=== PATIENT | female | born 2000 | race American Indian/Alaskan Native ===

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

== ENCOUNTER 2022-01-13 14:10 | Emergency (ER) | payer MEDICAID, SELFPAY ==
--- NOTE | ~2022-01-13 | US_ITS ---
EXAMINATION: US pelvic complete DATE: 01/13/2022 17:01 INDICATION: Right-sided pelvic pain TECHNIQUE: Multiple transabdominal sonographic images of the pelvis were obtained. COMPARISON: None. FINDINGS: The anteverted uterus measures 6.9 x 5.1 x 5.5 cm. The endometrial complex measures 11 mm in thickne ss. The right ovary measures 5.3 x 4.9 x 5.1 cm. There is a 4.0 cm hypoechoic lesion in the in the ri ght ovary which demonstrates near fluid attenuation on prior contrast enhanced CT most likely represe nting a complex hemorrhagic cyst. The left ovary measures 3.0 x 1.4 x 1.7 cm. Vascular flow identifie d in both ovaries on color Doppler. There is no free fluid in the pelvis. IMPRESSION: 1. 4.0 cm complex right ovarian lesion likely a hemorrhagic cyst. Recommend 6-12 months follow-up pel henri ultrasound to document resolution. Reviewed, dictated and finalized at location A. IMPRESSION: 1. 4.0 cm complex right ovarian lesion likely a hemorrhagic cyst. Recommend 6-1 2 months follow-up pelvic ultrasound to document resolution.
--- NOTE | ~2022-01-13 | CT_ITS ---
EXAMINATION: CT abdomen pelvis w con DATE: 01/13/2022 15:29 INDICATION: Right lower quadrant abdominal pain TECHNIQUE: Computed tomography (CT) of the abdomen and pelvis was performed with 100 mL Omnipaque-350 intravenous contrast. Automated exposure control and iterative reconstruction technique were employe d. The dose-length product was 218.70 mGy-cm. COMPARISON: None FINDINGS: Lung bases are clear. Heart size is normal. No pericardial or pleural effusion. Small region of focal hepatic steatosis at the ligamentum teres. Gallbladder, spleen, pancreas, bilateral adrenal glands a nd kidneys are normal. Bowels including the appendix are normal. 4.1 cm right adnexal cyst. Bladder, anteverted uterus and left adnexa are unremarkable. Small amount of likely physiologic free fluid in the pelvis. No abscess or free intraperitoneal gas. No pathologically enlarged abdominal or pelvic ly mphadenopathy. Bones are unremarkable. IMPRESSION: 1. 4.1 cm right adnexal cyst and small amount of likely physiologic free fluid in the cul-de-sac. 2. No other acute intra-abdominal/pelvic process. Specifically the appendix is normal. Reviewed, dictated and finalized at location A.
[2022-01-13 14:25] VITALS: BP 133/69; PULSE 92; RESP 17; TEMP 36.4; O2SAT 100
[2022-01-13 14:36] LABS: Basophils Absolute Auto 0.1 K/mm3 (0.0-0.1); Eosinophils Absolute Auto 0.2 K/mm3 (0-0.3); Eosinophils Percent Auto 2.7 % (0-4.4); Hematocrit 40.8 % (37.0-47.0); Hemoglobin 13.6 g/dL (12.0-15.0); Immature Granulocyte Absolute 0.01 K/mm3 (0.00-0.031); Immature Granulocyte Percent A 0.2 % (0-0.5); Lymphocytes Absolute Auto 2.21 K/mm3 (0.9-3.2); Lymphocytes Percent Auto 37.5 % (18.3-44.2); Mean Corpuscular HGB Conc 33.3 g/dl (32-36); Mean Corpuscular Hemoglobin 30.6 pg (26-34); Mean Corpuscular Volume 91.7 fl (80-100); Mean Platelet Volume 10.9 fl (7.4-10.4); Monocytes Absolute Auto 0.4 K/mm3 (0.1-0.6); Monocytes Percent Auto 5.9 % (2.6-8.5); Neutrophils Absolute Auto 3.1 K/mm3 (1.3-6.7); Neutrophils Percent Auto 52.7 % (45.5-73.1); Platelet Count Result 216 k/mm3 (150-375); Red Blood Count 4.45 M/mm3 (4.2-5.4); Red Cell Distribution Width 12.4 % (11.5-14.5); White Blood Count 5.9 K/mm3 (4.5-10.0)
[2022-01-13 14:37] LABS: Appearance Urine Cloudy (Clear); Bilirubin Urine Negative (Negative); Blood Urine Negative (Negative); Color Urine Yellow (Yellow); Glucose Urine UA Negative (Negative); Ketones Urine Negative (Negative); Leukocyte Esterase Ur 1+ LEU/UL (Negative); Nitrate Urine Negative (Negative); Protein Urine Negative (Negative); Urobilinogen Urine 0.2 mg/dL (<2.0)
[2022-01-13 14:43] LABS: Amorphous Sediment Urine Few; Bacteria Urine Trace /hpf; Mucus Urine Rare /lpf; Squamous Epithelial Cell Urine Moderate /hpf (Few)
[2022-01-13 14:45] LABS: Alanine Aminotransferase 17 U/L (6-35); Albumin Level 4.9 g/dL (3.7-5.6); Alkaline Phosphatase 73 U/L (45-116); Anion Gap 17 mmol/L (8-16); Aspartate Amino Transferase 23 U/L (14-36); Bilirubin,Total 0.2 mg/dL (0.2-1.3); Blood Urea Nitrogen 11 mg/dL (8-21); Calcium 8.8 mg/dL (8.9-10.7); Carbon Dioxide 20 mmol/L (22-30); Chloride 107 mmol/L (98-107); Estimated Glomerular Filt Rate > 60; Glucose 98 mg/dL (65-110); Lipase 214 U/L (23-300); Potassium 3.5 mmol/L (3.4-5.0); Sodium 144 mmol/L (134-143)
[2022-01-13 14:47] LABS: Add Urine Microscopic? YES
--- NOTE | 2022-01-13 14:48 | ED.ABDPAIN ---
HPI - Abdominal Pain General Chief Complaint: Abdominal Pain Stated Complaint: ABD PAIN Time Seen by Provider: 01/13/22 14:19 Source: patient Mode of arrival: ambulatory Limitations: no limitations History of Present Illness HPI narrative: This is a 21 year old female that presents to the ER for right lower quadrant pain. Present over the last couple of days. Reports the pain is crampy in nature. Associated with anorexia. Denies fever, vomiting, diarrhea, dysuria or hematuria. Related Data Home Medications Medication Instructions Recorded Confirmed oxybutynin chloride 5 mg tablet 5 mg PO DAILY 12/06/21 01/05/22 ubrogepant 50 mg tablet (Ubrelvy) 50 mg PO ONCE 01/05/22 01/05/22 Allergies Allergy/AdvReac Type Severity Reaction Status Date / Time amoxicillin Allergy Swelling Verified 01/13/22 14:26 of Lip/Tongue/Throat codeine Allergy Swelling Verified 01/13/22 14:26 of Lip/Tongue/Throat garlic Allergy Swelling Verified 01/13/22 14:26 Penicillins Allergy Swelling Verified 01/13/22 14:26 of Lip/Tongue/Throat promethazine Allergy Muscle Verified 01/13/22 14:26 Spasms Review of Systems Review of Systems: CONSTITUTIONAL: Denies fever GASTROINTESTINAL: Reports abdominal pain. Denies nausea, vomiting, or diarrhea. GENITOURINARY: Denies dysuria or hematuria. All systems reviewed & are unremarkable except as noted in HPI and below PMFSH Past Medical History Medical History Abnormal EEG Allergies Anxiety Bilateral pulmonary infiltrates on chest x-ray Chronic headaches Chronic tonsillitis Disorder of metabolism GERD (gastroesophageal reflux disease) H. pylori infection Irritable bowel disease Migraines Sleep disorder Suicide attempt Tonsil stone Tylenol overdose Surgical History Surgical History H/O sinus surgery H/O wisdom tooth extraction History of sinus surgery (~2020) Hx of tonsillectomy (~07/2021) Family History Family History Mother Thyroid disease Depression Anxiety Heart disease Asthma Thyroid cancer Father Alcoholism Anxiety Depression Heart disease Hypertension Sibling Alcoholism Asthma Anxiety Depression Grandparent Cancer paternal grandparent Hypertension paternal grandparent Heart disease maternal grandparent Cerebrovascular accident maternal grandparent Social History Social History Smoking status: Never smoker Alcohol intake: former Substance use: never Gender identity (if verbalized by the patient): Female Spiritual care concerns: No Exam Narrative: GENERAL: Well-appearing, well-nourished, and in no acute distress. HEAD: Normocephalic, atraumatic. EYES: EOMI. CHEST: Clear to auscultation. No respiratory distress. No wheezes rales or rhonchi HEART: Regular rate and rhythm. No murmur heard. Normal peripheral pulses. ABDOMEN: Soft, nondistended, normal active bowel sounds. Tender to palpation in the right lower quadrant, without guarding EXTREMITIES: Normal range of motion. No edema. SKIN: Warm, dry, no rash. NEURO: No focal deficits. Alert and oriented x3. PSYCH: Normal mood and affect Course Vital Signs Vital signs: Vital Signs Temperature 97.6 F 01/13/22 14:25 Pulse Rate 92 01/13/22 14:25 Respiratory Rate 17 01/13/22 14:25 Blood Pressure 133/69 01/13/22 14:25 Pulse Oximetry 100 01/13/22 14:25 Temperature 97.6 F 01/13/22 14:25 Pulse Rate 87 01/13/22 18:10 Respiratory Rate 18 01/13/22 18:10 Blood Pressure 128/85 01/13/22 18:10 Pulse Oximetry 99 01/13/22 18:10 MDM - Abdominal Pain MDM Narrative Medical decision making narrative: Patient presents emergency department for right lower quadrant pain ongoing over the last
[2022-01-13] MEDS: LACTATED RINGERS 1,000 ML 999 ML IV CONT (14:58)
[2022-01-13 18:10] VITALS: BP 128/85; PULSE 87; RESP 18; O2SAT 99
[2022-01-13 18:19] LABS: Anion Gap 14 mmol/L (8-16); Blood Urea Nitrogen 9 mg/dL (8-21); Calcium 8.7 mg/dL (8.9-10.7); Carbon Dioxide 19 mmol/L (22-30); Chloride 107 mmol/L (98-107); Estimated Glomerular Filt Rate > 60; Glucose 93 mg/dL (65-110); Potassium 3.6 mmol/L (3.4-5.0); Sodium 140 mmol/L (134-143)
[2022-01-13 18:28] VITALS: BP 114/68; PULSE 70; RESP 16; TEMP 36.3; O2SAT 100
== END 2022-01-13 18:29 | disposition home or self-care (01) ==
PROVIDERS: Physician Assistant; Emergency Provider Emergency Medicine; PCP Nurse Practitioner
DX: N83.201 Unspecified ovarian cyst, right side (principal); E88.9 Metabolic disorder, unspecified; K21.9 Gastro-esophageal reflux disease without esophagitis; K58.9 Irritable bowel syndrome, unspecified; G47.9 Sleep disorder, unspecified; F41.9 Anxiety disorder, unspecified
CPT/HCPCS: 36415; 74177; 76856; 80048; 80053; 81001; 81025; 83690; 85025; 87086; 96361; 96365; 99284; J0131; J7120; Q9967

== ENCOUNTER 2022-01-19 12:32 | Emergency (ER) | payer MEDICAID, SELFPAY ==
--- NOTE | ~2022-01-19 | CT_ITS ---
EXAMINATION: CT abdomen pelvis w con DATE: 01/19/2022 17:08 INDICATION: RLQ abd pain TECHNIQUE: Computed tomography (CT) of the abdomen and pelvis was performed with 100 mL Omnipaque-350 intravenous contrast. Automated exposure control and iterative reconstruction technique were employe d. The dose-length product was 266.26 mGy-cm. COMPARISON: 01/13/2022, pelvic ultrasound 01/19/2022. FINDINGS: Lower thorax: Unremarkable Liver: Normal. Biliary/Gallbladder: Gallbladder is normal. No bile duct dilation. Pancreas: No mass or duct dilation. Spleen: Normal. Adrenals:No mass. Kidneys: No mass, stone, or hydronephrosis. GI tract: Distal esophageal and gastric wall edema. The No small or large bowel dilation. Normal appe ndix. Mesentery/Peritoneum: No ascites, mass, or free air. Retroperitoneum: No mass. Pelvis: Normal urinary bladder, uterus, and left ovary. 4.3 cm right ovarian cyst, slightly smaller t boykin the prior study by my measurements, with a fluid fluid level versus dependent debris. Small volum e pelvic fluid, within physiologic range. Soft Tissues: Soft tissues and body wall unremarkable. Bones: No acute osseous finding. IMPRESSION: 4.3 cm right ovarian cyst, likely evolving hemorrhagic cyst, consider 6-12 week follow-up pelvic ultr asound to document resolution. The appendix is normal. Reviewed, dictated and finalized at location K. IMPRESSION: 4.3 cm right ovarian cyst, likely evolving hemorrhagic cyst, consider 6-12 week follow-up pelvic ultrasound to document resolution. The appendix is normal.
--- NOTE | ~2022-01-19 | US_ITS ---
EXAMINATION: US pelvic complete DATE: 01/19/2022 14:35 INDICATION: Right adnexal pain TECHNIQUE: Multiple transabdominal and endovaginal sonographic images of the pelvis were obtained. COMPARISON: None. FINDINGS: The uterus measures 6.6 x 3.0 x 4.4 cm. The endometrial complex measures 8 mm in thickness. The righ t ovary measures 4.7 x 4.0 x 4.7 cm. There is dependently layering hyperechoic material without inter nal vascular flow on color Doppler within a 3.9 cm complex right ovarian cyst which previously demons trated more homogeneous internal echogenicity suggesting an evolving hemorrhagic cyst. The left ovary measures 2.1 x 1.3 x 2.0 cm. Extrapleural identified in both ovaries on color Doppler. There is no f ree fluid in the pelvis. IMPRESSION: 1. Interval evolution appearance of a 3.9 cm complex cystic right ovarian lesion most likely represen ting an evolving hemorrhagic cyst. Consider 6-12 week follow-up to document resolution. Reviewed, dictated and finalized at location A. IMPRESSION: 1. Interval evolution appearance of a 3.9 cm complex cystic right ovarian lesio n most likely representing an evolving hemorrhagic cyst. Consider 6-12 week fol low-up to document resolution.
[2022-01-19 13:23] VITALS: BP 119/65; PULSE 100; RESP 20; TEMP 36.4; O2SAT 100
--- NOTE | 2022-01-19 14:03 | ED.GENADULT ---
HPI - General Adult General Chief complaint: CAR SHIFTER Stated complaint: OVARIAN CYST Time Seen by Provider: 01/19/22 13:53 Source: RN notes reviewed History of Present Illness HPI narrative: Patient presents to emergency department from home for abdominal pain. Patient states abdominal pain began 5 days ago. The pain is located bilateral lower abdomen does not radiate described as sharp and stabbing. 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 States she did have some mild diarrhea. Patient states she has been taking Aleve for the symptoms with last dose of Aleve this morning Related Data Home Medications Medication Instructions Recorded Confirmed ubrogepant 50 mg tablet (Ubrelvy) 50 mg PO ONCE 01/05/22 01/05/22 Allergies Allergy/AdvReac Type Severity Reaction Status Date / Time amoxicillin Allergy Swelling Verified 01/14/22 08:31 of Lip/Tongue/Throat codeine Allergy Swelling Verified 01/14/22 08:31 of Lip/Tongue/Throat garlic Allergy Swelling Verified 01/14/22 08:31 Penicillins Allergy Swelling Verified 01/14/22 08:31 of Lip/Tongue/Throat promethazine Allergy Muscle Verified 01/14/22 08:31 Spasms Review of Systems Review of Systems: Gen.: Denies fevers or chills ENT: Denies congestion Respiratory: Denies shortness of breath or cough CV: Denies chest pain or palpitations GI: See HPI denies burning, urgency, frequency or hematuria Musculoskeletal: Denies back pain or muscle pain Neuro: Denies numbness, tingling, weakness or focal weakness Skin: Denies rash Except as documented, all other systems reviewed and negative [facility] Past Medical History Medical History Abnormal EEG Allergies Anxiety Bilateral pulmonary infiltrates on chest x-ray Chronic headaches Chronic tonsillitis Disorder of metabolism GERD (gastroesophageal reflux disease) H. pylori infection Irritable bowel disease Migraines Sleep disorder Suicide attempt Tonsil stone Tylenol overdose Surgical History Surgical History H/O sinus surgery H/O wisdom tooth extraction History of sinus surgery (~2020) Hx of tonsillectomy (~07/2021) Family History Family History (Updated 01/14/22 @ 08:35 by Barbi Joseph MA) Mother Thyroid disease Depression Anxiety Heart disease Asthma Thyroid cancer Endometriosis Father Alcoholism Anxiety Depression Heart disease Hypertension Sibling Alcoholism Asthma Anxiety Depression Grandparent Cancer paternal grandparent Hypertension paternal grandparent Heart disease maternal grandparent Cerebrovascular accident maternal grandparent Endometriosis Other Endometriosis Social History Social History Smoking status: Never smoker Alcohol intake: former Substance use: never Gender identity (if verbalized by the patient): Female Spiritual care concerns: No Exam Narrative: APPEARANCE: No acute distress, nontoxic, resting in bed HEENT: Normocephalic, atraumatic, OMM RESPIRATORY: No respiratory distress, clear to auscultation bilaterally with no rhonchi wheezing or rales CARDIOVASCULAR: RRR s murmur ABDOMINAL: Soft nondistended tender palpation right lower quadrant left lower quadrant no tenderness right upper quadrant and left upper quadrant no rebound or guarding MUSCULOSKELETAl: Moves all extremities. No clubbing, cyanosis or edema. NEURO: Awake and alert. Following commands, speech normal, no focal deficits SKIN:: Warm, dry. Normal Color PSYCHIATRIC: Normal affect/mood Course Course Emergency Course: Reviewed old records patient was seen here on the 29
[2022-01-19] MEDS: SODIUM CHLORIDE 0.9% IV 1,000 ML 999 ML IV CONT (14:29)
[2022-01-19] MEDS: ONDANSETRON INJ 4 MG/2 ML VIAL IV PUSH (14:30)
[2022-01-19 14:38] LABS: Appearance Urine Clear (Clear); Bilirubin Urine Negative (Negative); Blood Urine Negative (Negative); Color Urine Yellow (Yellow); Glucose Urine UA Negative (Negative); Ketones Urine Negative (Negative); Leukocyte Esterase Ur Negative LEU/UL (Negative); Nitrate Urine Negative (Negative); Protein Urine Negative (Negative); Specific Grav Ur 1.025 (1.001-1.035); Urobilinogen Urine 0.2 mg/dL (<2.0); pH Urine 6.5 (5.0-9.0)
[2022-01-19 14:45] LABS: Basophils Absolute Auto 0.1 K/mm3 (0.0-0.1); Basophils Percent Auto 0.8 % (0.2-1.2); Eosinophils Absolute Auto 0.2 K/mm3 (0-0.3); Eosinophils Percent Auto 2.6 % (0-4.4); Hematocrit 37.7 % (37.0-47.0); Hemoglobin 12.5 g/dL (12.0-15.0); Immature Granulocyte Absolute 0.01 K/mm3 (0.00-0.031); Immature Granulocyte Percent A 0.2 % (0-0.5); Lymphocytes Absolute Auto 2.26 K/mm3 (0.9-3.2); Mean Corpuscular HGB Conc 33.2 g/dl (32-36); Mean Corpuscular Hemoglobin 30.6 pg (26-34); Mean Corpuscular Volume 92.2 fl (80-100); Monocytes Absolute Auto 0.6 K/mm3 (0.1-0.6); Monocytes Percent Auto 8.8 % (2.6-8.5); Neutrophils Absolute Auto 3.4 K/mm3 (1.3-6.7); Neutrophils Percent Auto 52.6 % (45.5-73.1); Platelet Count Result 203 k/mm3 (150-375); Red Blood Count 4.09 M/mm3 (4.2-5.4); Red Cell Distribution Width 12.6 % (11.5-14.5); White Blood Count 6.5 K/mm3 (4.5-10.0)
[2022-01-19 14:58] LABS: Alanine Aminotransferase 19 U/L (6-35); Albumin Level 4.5 g/dL (3.7-5.6); Alkaline Phosphatase 71 U/L (45-116); Anion Gap 8 mmol/L (8-16); Aspartate Amino Transferase 22 U/L (14-36); Bilirubin,Total 0.2 mg/dL (0.2-1.3); Blood Urea Nitrogen 12 mg/dL (8-21); Calcium 8.6 mg/dL (8.9-10.7); Carbon Dioxide 20 mmol/L (22-30); Chloride 111 mmol/L (98-107); Estimated Glomerular Filt Rate > 60; Glucose 81 mg/dL (65-110); Lipase 221 U/L (23-300); Potassium 3.3 mmol/L (3.4-5.0); Sodium 139 mmol/L (134-143)
[2022-01-19 15:06] LABS: Add Urine Microscopic? NO
[2022-01-19] MEDS: KETOROLAC 30 MG/ML VIAL (*BKC) IV PUSH (15:30)
[2022-01-19] MEDS: POTASSIUM CHLORIDE 20 MEQ TABLET PO (17:45)
== END 2022-01-19 18:26 | disposition home or self-care (01) ==
PROVIDERS: Emergency Provider Emergency Medicine; PCP Nurse Practitioner
DX: N83.201 Unspecified ovarian cyst, right side (principal); K21.9 Gastro-esophageal reflux disease without esophagitis; K58.9 Irritable bowel syndrome, unspecified; G47.9 Sleep disorder, unspecified; F41.9 Anxiety disorder, unspecified
CPT/HCPCS: 36415; 74177; 76856; 80053; 81003; 81025; 83690; 85025; 96361; 96374; 96375; 99284; A9270; J0131; J1885; J2405; J7030; Q9967

== ENCOUNTER 2022-01-21 08:39 | Outpatient (CLI) | payer MEDICAID, SELFPAY ==
--- NOTE | ~2022-01-21 | US_ITS ---
US axilla LT 01/21/2022 09:19 Indication: Localized lymph node enlargement Procedure: High-resolution ultrasound of the left axilla Comparison: No prior studies for comparison. Findings: There are 2 normal-appearing left axillary lymph nodes, largest measuring 1.1 cm greatest d imension, both of which retain their normal fatty hilum. No suspicious masses in the axilla. No abnor mal fluid collections. Impression: 1: Normal left axillary lymph nodes. Reviewed, dictated and finalized at location A. Impression: 1: Normal left axillary lymph nodes.
== END 2022-01-21 08:40 | disposition home or self-care (01) ==
LOC: ANHIMG 08:40
PROVIDERS: PCP Nurse Practitioner; Visit Provider Nurse Practitioner
DX: R59.0 Localized enlarged lymph nodes (principal)
CPT/HCPCS: 76882

== ENCOUNTER 2022-02-04 15:13 | Outpatient (CLI) | payer MEDICAID, SELFPAY ==
[2022-02-04 19:57] LABS: Rheumatoid Factor < 8.6 IU/ML (<12)
== END 2022-02-04 15:14 | disposition home or self-care (01) ==
LOC: ANHGOSHLAB 15:14
PROVIDERS: PCP Nurse Practitioner; Visit Provider Nurse Practitioner
DX: R53.83 Other fatigue (principal); M25.50 Pain in unspecified joint
CPT/HCPCS: 36415; 86430

== ENCOUNTER → 2022-02-04 15:20 | Outpatient (CLI) | payer MEDICAID, SELFPAY ==
--- NOTE | ~2022-02-04 | XR_ITS ---
EXAMINATION: XR thoracic spine 3V DATE: 02/04/2022 15:35 INDICATION: Dorsalgia, unspecified. TECHNIQUE: 3 views of thoracic spine were obtained. COMPARISON: CT abdomen and pelvis 01/19/2022 FINDINGS: There is 5 degrees levocurvature of thoracic spine. Vertebral body heights and intervertebr al disc heights are normal. IMPRESSION: 1. No etiology for the patient's symptoms. Reviewed, dictated and finalized at location A.
== END ==
PROVIDERS: PCP Nurse Practitioner; Visit Provider Nurse Practitioner
DX: M54.9 Dorsalgia, unspecified (principal)
CPT/HCPCS: 72072

== ENCOUNTER 2022-02-16 12:45 | Outpatient (CLI) | payer MEDICAID, SELFPAY ==
[2022-02-16 20:24] LABS: Erythrocyte Sedimentation Rate 12 mm/hr (0-20)
== END 2022-02-16 12:46 | disposition home or self-care (01) ==
LOC: ANHGOSHLAB 12:54
PROVIDERS: PCP Nurse Practitioner; Visit Provider Nurse Practitioner
DX: M25.50 Pain in unspecified joint (principal); R53.83 Other fatigue
CPT/HCPCS: 36415; 85652; 86038

== ENCOUNTER 2022-03-25 09:36 | Emergency (ER) | payer MEDICAID, SELFPAY ==
--- NOTE | ~2022-03-25 | CT_ITS ---
EXAMINATION: CT lumbar spine wo con DATE: 03/25/2022 11:46 INDICATION: Low back pain with radicular symptoms. TECHNIQUE: Computed tomography (CT) of the lumbar spine was performed without intravenous contrast. A utomated exposure control and iterative reconstruction technique were employed. The dose-length produ ct was 246.63 mGy-cm. COMPARISON: None FINDINGS: Bone alignment is normal. Vertebral body heights and intervertebral disc heights are normal . The following disc levels are specifically discussed: L1-L2: The disc does not extend beyond the endplate margin. There is mild bilateral facet joint osteo arthritis. There is no neural foraminal stenosis. There is no central canal stenosis. L2-L3: The disc does not extend beyond the endplate margin. There is mild bilateral facet joint osteo arthritis. There is no neural foraminal stenosis. There is no central canal stenosis. L3-L4: The disc is bulging. There is mild bilateral facet joint osteoarthritis. There is mild bilater al neural foraminal stenosis. There is mild central canal stenosis. L4-L5: The disc is bulging. There is mild bilateral facet joint osteoarthritis. There is mild bilater al neural foraminal stenosis. There is mild central canal stenosis. L5-S1: The disc is bulging. There is moderate right and mild left facet joint osteoarthritis. There i s no neural foraminal stenosis. There is mild central canal stenosis. IMPRESSION: 1. Mild lumbar spondylosis. Reviewed, dictated and finalized at location E. REIGHT LOADING SUPERVISOR IMPRESSION: 1. Mild lumbar spondylosis.
[2022-03-25 09:54] VITALS: BP 125/74; PULSE 114; RESP 16; TEMP 36.9; O2SAT 100
--- NOTE | 2022-03-25 11:16 | ED.BACK ---
HPI - Back Pain/Injury General Chief Complaint: Back Pain/Injury Stated Complaint: back pain Time Seen by Provider: 03/25/22 10:53 History of Present Illness HPI Narrative: 21-year-old female presents to the emergency room for evaluation of chronic back pain that has been present for several years. Patient states that the back pain is worsened over the past couple of months. Denies any radicular pain, neuropathy, saddle anesthesia, difficulty with her bowel or bladder habits. Patient states pain is worse with rotational, lateral and forward flexion movements. Patient is had plain films completed showing no acute bony abnormalities. Patient is scheduled to see a laboratory apparatus glass blower later this month even though her rheumatoid factor was recently drawn and found to be negative. Patient is currently on Flexeril which she says does not alleviate her symptoms. Related Data Allergies Allergy/AdvReac Type Severity Reaction Status Date / Time amoxicillin Allergy Swelling Verified 03/25/22 09:36 of Lip/Tongue/Throat codeine Allergy Swelling Verified 03/25/22 09:36 of Lip/Tongue/Throat garlic Allergy Swelling Verified 03/25/22 09:36 Penicillins Allergy Swelling Verified 03/25/22 09:36 of Lip/Tongue/Throat promethazine Allergy Muscle Verified 03/25/22 09:36 Spasms Review of Systems Review of Systems: CONSTITUTIONAL: Denies fever, chills, or sweats. EYES: Denies visual changes, redness, or discharge. ENT: Denies rhinorrhea, congestion, sore throat, or otalgia. CARDIOVASCULAR: Denies chest pain, palpitations, or edema. RESPIRATORY: Denies cough or dyspnea. GASTROINTESTINAL: Denies abdominal pain, nausea, vomiting, or diarrhea. GENITOURINARY: Denies dysuria or hematuria. SKIN: Denies rash or itching. MUSCULOSKELETAL: Reports chronic low back pain NEUROLOGIC: Denies headache, numbness, dizziness, or weakness. PSYCHIATRIC: Denies anxiety or depression. [facility] Past Medical History Medical History Abnormal EEG Allergies Anxiety Bilateral pulmonary infiltrates on chest x-ray Chronic headaches Chronic tonsillitis Disorder of metabolism GERD (gastroesophageal reflux disease) H. pylori infection Irritable bowel disease Migraines Sleep disorder Suicide attempt Tonsil stone Tylenol overdose Surgical History Surgical History H/O sinus surgery H/O wisdom tooth extraction History of sinus surgery (~2020) Hx of tonsillectomy (~07/2021) Family History Family History Mother Thyroid disease Depression Anxiety Heart disease Asthma Thyroid cancer Endometriosis Father Alcoholism Anxiety Depression Heart disease Hypertension Sibling Alcoholism Asthma Anxiety Depression Grandparent Cancer paternal grandparent Hypertension paternal grandparent Heart disease maternal grandparent Cerebrovascular accident maternal grandparent Endometriosis Other Endometriosis Social History Social History Smoking status: Never smoker Alcohol intake: former Substance use: never Substance use type: does not use Gender identity (if verbalized by the patient): Female Spiritual care concerns: No Exam Narrative: GENERAL: Well-appearing, well-nourished, no physical limitations, and in no acute distress. HEAD: Normocephalic, atraumatic. EYES: Conjunctivae normal, PERRLA and EOMI. CHEST: Clear to auscultation. No respiratory distress. No wheezes rales or rhonchi. HEART: Regular rate and rhythm. No murmur heard. Normal peripheral pulses. BACK: No midline lumbar tenderness, step-offs, bony abnormality; FROM. Tenderness over the paralumbar muscles and thoracolumbar fascia. -SLE bilaterally EXTREMITIES: Normal range of motion. No edema. N
[2022-03-25 11:52] LABS: Appearance Urine Slightly Cloudy (Clear); Bilirubin Urine Negative (Negative); Blood Urine 1+ (Negative); Color Urine Yellow (Yellow); Glucose Urine UA Negative (Negative); Ketones Urine Negative (Negative); Leukocyte Esterase Ur Negative LEU/UL (Negative); Nitrate Urine Negative (Negative); Protein Urine Negative (Negative); Specific Grav Ur 1.015 (1.001-1.035); Urobilinogen Urine 0.2 mg/dL (<2.0); pH Urine 7.5 (5.0-9.0)
[2022-03-25 11:58] LABS: Amorphous Sediment Urine Few; Budding Yeast Urine Present /hpf; Squamous Epithelial Cell Urine Rare /hpf (Few)
[2022-03-25 12:06] LABS: Add Urine Microscopic? YES
== END 2022-03-25 13:07 | disposition home or self-care (01) ==
PROVIDERS: Emergency Provider Nurse Practitioner Family; PCP Nurse Practitioner
DX: M54.9 Dorsalgia, unspecified (principal); G89.29 Other chronic pain; K21.9 Gastro-esophageal reflux disease without esophagitis; E88.9 Metabolic disorder, unspecified; K58.9 Irritable bowel syndrome, unspecified; G47.9 Sleep disorder, unspecified; F41.9 Anxiety disorder, unspecified
CPT/HCPCS: 72131; 81001; 81025; 99284

== ENCOUNTER 2022-04-05 14:06 | Outpatient (CLI) | payer MEDICAID, SELFPAY ==
[2022-04-05 18:49] LABS: Uric Acid 3.7 mg/dL (3.0-5.9)
[2022-04-05 19:34] LABS: Vitamin D 25 Hydroxy 38.1 ng/mL
[2022-04-08 03:24] LABS: Thyroid Peroxidase Antibodies 3 IU/mL (<9)
[2022-04-08 09:27] LABS: Anti Cyclic Citrullinated Pept <16 Units (<20)
[2022-04-08 15:51] LABS: Gliadin AB, IgG <1.0 U/mL (<15.0); TTG IGA AB <1.0 U/mL (<15.0)
[2022-04-13 22:52] LABS: ANCA Screen Negative (Negative); Myeloperoxidase Ab <1.0 AI (<1.0); Proteinase-3 Ab <1.0 AI (<1.0); S cerevisiae Ab (IgA) 4.1 U (<=20.0); S cerevisiae Ab (IgG) 10.2 U (<=20.0)
== END 2022-04-05 14:07 | disposition home or self-care (01) ==
LOC: ANHGOSHLAB 14:07
PROVIDERS: PCP Nurse Practitioner; Visit Provider Internal Medicine
DX: G43.119 Migraine with aura, intractable, without status migrainosus (principal); M19.90 Unspecified osteoarthritis, unspecified site; R53.83 Other fatigue
CPT/HCPCS: 36415; 72202; 73130; 73562; 82306; 83516; 84550; 86036; 86200; 86255; 86376; 86671

== ENCOUNTER 2022-04-05 16:32 | Outpatient (CLI) | payer MEDICAID, SELFPAY ==
--- NOTE | ~2022-04-05 | XR_ITS ---
Left Knee Technique: AP, lateral, and sunrise views were obtained. Clinical History: Osteoarthritis Findings: No fracture or dislocation is seen. Osseous alignment is anatomic. Joint spaces are preserv ed without degenerative or erosive change. Soft tissues are unremarkable. No joint effusion is seen. Impression: Unremarkable left knee radiographs. Reviewed, dictated and finalized at location . RUMENT LENS INSPECTOR Impression: Unremarkable left knee radiographs.
--- NOTE | ~2022-04-05 | XR_ITS ---
Bilateral Hands Technique: PA, oblique, and lateral views, and ball-catcher's view were obtained. Clinical History: Osteoarthritis Findings: No acute fracture or dislocation is seen. Osseous alignment is anatomic. Joint spaces are p reserved. Soft tissues are unremarkable. Impression: Unremarkable bilateral hand radiographs. Reviewed, dictated and finalized at location . L PUMP OPERATOR Impression: Unremarkable bilateral hand radiographs.
--- NOTE | ~2022-04-05 | XR_ITS ---
AP and oblique views of the SI joints CLINICAL HISTORY: Osteoarthritis FINDINGS: Visualized joint spaces are intact. No erosive or sclerotic change. Soft tissues are unrema rkable. IMPRESSION: Unremarkable exam. Reviewed, dictated and finalized at location . ECTOR WATCH ASSEMBLY IMPRESSION: Unremarkable exam.
--- NOTE | ~2022-04-05 | XR_ITS ---
Right Knee Technique: AP, lateral, and sunrise views were obtained. Clinical History: Osteoarthritis Findings: No fracture or dislocation is seen. Osseous alignment is anatomic. Joint spaces are preserv ed without degenerative or erosive change. Soft tissues are unremarkable. No joint effusion is seen. Impression: Unremarkable right knee radiographs. Reviewed, dictated and finalized at location . UTATOR Impression: Unremarkable right knee radiographs.
== END 2022-04-05 16:33 | disposition home or self-care (01) ==
PROVIDERS: PCP Nurse Practitioner; Visit Provider Internal Medicine
DX: G43.119 Migraine with aura, intractable, without status migrainosus (principal); M19.90 Unspecified osteoarthritis, unspecified site; R53.83 Other fatigue
CPT/HCPCS: 72202; 73130; 73562

== ENCOUNTER 2022-04-18 09:22 | Emergency (ER) | payer MEDICAID, SELFPAY ==
[2022-04-18 09:54] VITALS: BP 121/68; PULSE 116; RESP 16; TEMP 37.1; O2SAT 100
[2022-04-18 12:13] LABS: Add Urine Microscopic? YES; Appearance Urine Cloudy (Clear); Bilirubin Urine Negative (Negative); Blood Urine Negative (Negative); Color Urine Yellow (Yellow); Glucose Urine UA Negative (Negative); Ketones Urine Negative (Negative); Leukocyte Esterase Ur Negative LEU/UL (Negative); Nitrate Urine Negative (Negative); Protein Urine Negative (Negative); Urobilinogen Urine 0.2 mg/dL (<2.0); pH Urine 6.5 (5.0-9.0)
--- NOTE | 2022-04-18 12:23 | ED.GENADULT ---
HPI - General Adult General Chief complaint: Back Pain/Injury Stated complaint: back pain acute on chronic Time Seen by Provider: 04/18/22 11:55 History of Present Illness HPI narrative: 21-year-old female presenting to the emergency department for evaluation of intermittent lower extremity numbness. Patient states he has had longstanding issues with lower back pain and was recently diagnosed with spinal stenosis. Patient has been taking medications for pain control does have follow-up scheduled with Dr. Desai on May 10. Patient has also had follow-up with her primary care physician for this. Patient states that she has had no additional recent falls or injuries. Patient states that the intermittent leg numbness has been more frequent. Patient states that happens when she hyper flexes her legs and that the numbness only lasts a few minutes. Patient denies any lower extremity weakness. Patient denies any loss of bowel control or difficulty urinating. Patient denies any current numbness. Patient denies any other significant past medical history. Related Data Allergies Allergy/AdvReac Type Severity Reaction Status Date / Time amoxicillin Allergy Swelling Verified 04/18/22 11:13 of Lip/Tongue/Throat codeine Allergy Swelling Verified 04/18/22 11:13 of Lip/Tongue/Throat garlic Allergy Swelling Verified 04/18/22 11:13 Penicillins Allergy Swelling Verified 04/18/22 11:13 of Lip/Tongue/Throat promethazine Allergy Muscle Verified 04/18/22 11:13 Spasms Review of Systems Review of Systems: CONSTITUTIONAL: Denies fever, chills, or sweats. EYES: Denies visual changes, redness, or discharge. ENT: Denies rhinorrhea, congestion, sore throat, or otalgia. CARDIOVASCULAR: Denies chest pain, palpitations, or edema. RESPIRATORY: Denies cough or dyspnea. GASTROINTESTINAL: Denies abdominal pain, nausea, vomiting, or diarrhea. GENITOURINARY: Denies dysuria or hematuria. SKIN: Denies rash or itching. MUSCULOSKELETAL: Denies back pain, joint pain, or myalgia. NEUROLOGIC: See [facility] Past Medical History Medical History (Updated 04/18/22 @ 12:32 by Crescencio Thompson MD) Abnormal EEG Allergies Anxiety Bilateral pulmonary infiltrates on chest x-ray Chronic headaches Chronic tonsillitis Disorder of metabolism GERD (gastroesophageal reflux disease) H. pylori infection Inflammatory arthritis Irritable bowel disease Migraines Sleep disorder Suicide attempt Tonsil stone Tylenol overdose Surgical History Surgical History H/O sinus surgery H/O wisdom tooth extraction History of sinus surgery (~2020) Hx of tonsillectomy (~07/2021) Family History Family History Mother Thyroid disease Depression Anxiety Heart disease Asthma Thyroid cancer Endometriosis Father Alcoholism Anxiety Depression Heart disease Hypertension Sibling Alcoholism Asthma Anxiety Depression Grandparent Cancer paternal grandparent Hypertension paternal grandparent Heart disease maternal grandparent Cerebrovascular accident maternal grandparent Endometriosis Other Endometriosis Social History Social History Smoking status: Never smoker Alcohol intake: former Substance use: never Substance use type: does not use Lack of Transportation: No Lack of Food: Never True Current Housing: Decline to Answer Concerned About Future Housing: No Difficulty Paying Gas/Electric Bills: No Difficulty Paying for Meds: No Currently Unemployed: No Education: High School Diploma/GED Difficulty w/ Childcare or Family Care: No Gender identity (if verbalized by the patient): Female Spiritual care concerns: No Agree to blood products: Yes Exam Narrative: APPEARANCE: Well appearing,
[2022-04-18 12:46] LABS: Amorphous Sediment Urine Few; Mucus Urine Rare /lpf
== END 2022-04-18 12:39 | disposition home or self-care (01) ==
PROVIDERS: General Practice; Emergency Provider Emergency Medicine; PCP Nurse Practitioner
DX: M54.9 Dorsalgia, unspecified (principal); F41.9 Anxiety disorder, unspecified
CPT/HCPCS: 81001; 81025; 99283

== ENCOUNTER 2022-04-19 09:38 | Outpatient (CLI) | payer MEDICAID, SELFPAY ==
[2022-04-24 17:26] LABS: Calprotectin, Stool <5 mcg/g
== END 2022-04-19 09:39 | disposition home or self-care (01) ==
PROVIDERS: PCP Family Medicine; Visit Provider Internal Medicine
DX: M19.90 Unspecified osteoarthritis, unspecified site (principal)
CPT/HCPCS: 83993

== ENCOUNTER 2022-05-10 15:30 | Outpatient (RCR) | payer MEDICAID, SELFPAY ==
--- NOTE | 2022-03-07 14:43 | PTOPEVAL1 ---
Assessment and note entered by Mayra Conway, PT, DPT Evaluation Information Assessment Status Evaluation Diagnosis back pain Onset 2 years Subjective Information Pt states she has had back pain for the last 2 years or so. She states nothing makes her pain better. She states standing or sitting for too long back her back hurt worse. Prior she was treated by a chiropractor with some relief. She also wears custom foot orthotics. She states she has an issue with hyperextending her knees. Pt reports an increase in finger stiffness and back ache recently. Reported Pain Level Pain Score 5: Self Report Assessment PT Clinical Summary Elaine is a 21 y/o female who presents to therapy today for her initial evaluation with a diagnosis of low back pain. Today she demonstrates pain with lumbar and thoracic active ROM. She demonstrates a mild increased increase in lumbar lordosis, has palpable muscle spasms, and increased tenderness with L rib, L lumbar paraspinals, and central PAs in the lumbar spine. She demonstrates mild weakness in her urszula LEs throughout as well as decreased core strength and activation with targeted exercise. Skilled physical therapy services are indicated to improve pain reports, decreased muscle spasms, improve strength, and improve functional mobility. Plan of Care Interventions Electrical Stimulation,Gait Training,Hot Pack/Cold Pack,Manual Therapy,Neuro Re-education,Patient/ Caregiver Educati,Therapeutic Activities, Therapeutic Exercise PT Services Indicated Yes Treatment Frequency and 2x/wk for 5 wks Duration These treatments will address the objective and functional deficits as defined above. The patient will be advanced safely and appropriately in order for the patient to progress towards his/her prior level of function. Additional exercises will be introduced and as well as a comprehensive home exercise program upon discharge, if needed, ?to ensure carryover of functional gains achieved in the clinic. This treatment plan has been reviewed and agreement upon by the patient.
--- NOTE | 2022-04-04 09:49 | PCPTNOTE ---
Patient called & cancelled scheduled appointment this date due to having to take a test. She has been rescheduled.
--- NOTE | 2022-04-12 10:00 | PTOPPROG ---
Assessment and note entered by Mayra Conway, PT, DPT Evaluation Information Assessment Status Progress Diagnosis back pain Onset 2 years Subjective Information Pt states she is sore after she is done with therapy and after she is done working. She states her pain has improved, but it still just hurts. She reports a 30% improvement in her overall symptoms. She states she can stand for 5 mins, and walk 10 mins prior to an increase in pain. Assessment PT Clinical Summary Elaine presents to therapy today for her progress report following 7 visits of skilled therapy to treat her low back pain, radicular symptoms, and generalized low tone in her BLE. Today she continues to report high levels of pain with functional motions. She has progressed her BLE strength but this is still decreased from expected. She continues to have strong lumbar muscle spasms with palpation. She reports good compliance with her HEP and is making some progress towards her goals. Continuation of skilled physical therapy services are indicated to futher address her therapy goals, to manage pain, and to progress towards unlimited functional mobility. Plan of Care Interventions Electrical Stimulation,Gait Training,Hot Pack/Cold Pack,Manual Therapy,Neuro Re-education,Patient/ Caregiver Educati,Therapeutic Activities, Therapeutic Exercise PT Services Indicated Yes Treatment Frequency and 2x/wk for 4 wks Duration These treatments will address the objective and functional deficits as defined above. The patient will be advanced safely and appropriately in order for the patient to progress towards his/her prior level of function. Additional exercises will be introduced and as well as a comprehensive home exercise program upon discharge, if needed, ?to ensure carryover of functional gains achieved in the clinic. This treatment plan has been reviewed and agreement upon by the patient.
--- NOTE | 2022-05-05 08:27 | PCPTNOTE ---
Patient canceled appointment this date due to being out of town for class.
--- NOTE | 2022-05-10 16:33 | PTOPPROG ---
Assessment and note entered by Mayra Conway, PT, DPT Evaluation Information Assessment Status Progress Diagnosis back pain Onset 2 years Subjective Information Pt states she is having increased frequency and intensity of her the muscle spasms of her back. She also states the numbness in her legs is increasing. She reports 2 recent bout of urinary incontinence. She states when sitting on the couch with her legs reclined she will have complete numbness of her hips and pelvis. She states she has also gotten a quick muscle spasm that causes her ankle to move on its own. Pt states it does feel like she has gotten stronger. Assessment PT Clinical Summary Elaine presents to therapy today for her progress report following 13 visits of skilled therapy to treat her lumbar radiculopathy. Today she demonstrates improved LE strength with resistance, however still demonstrates impaired functional strength. She reports an increase severity and frequency of LE numbness and has had a recent bout of urinary incontinence. It is recommend that the patient follow up with her neurologist prior to continuing therapy d/t her worsening symptoms. Plan of Care Interventions Electrical Stimulation,Gait Training,Hot Pack/Cold Pack,Manual Therapy,Neuro Re-education,Patient/ Caregiver Educati,Therapeutic Activities, Therapeutic Exercise PT Services Indicated Yes Treatment Frequency and pending neurology follow up Duration These treatments will address the objective and functional deficits as defined above. The patient will be advanced safely and appropriately in order for the patient to progress towards his/her prior level of function. Additional exercises will be introduced and as well as a comprehensive home exercise program upon discharge, if needed, ?to ensure carryover of functional gains achieved in the clinic. This treatment plan has been reviewed and agreement upon by the patient.
--- NOTE | 2022-05-27 09:43 | PTOPDC ---
Assessment and note entered by Mayra Conway, PT, DPT Evaluation Information Assessment Status Discharge - Pt Not Present Diagnosis back pain Onset 2 years Subjective Information Called and spoke with patient. Followed up on her visit with neuro. Per patient their current POC is to follow up with pain management and they did not discuss continuing therapy as a part of the plan. She would like to be discharged at this time . Assessment PT Clinical Summary Elaine has completed 14 visits of skilled therapy from 03/07/22 to 05/10/22. She will be discharged at this time. If she is to return to therapy at a later date, she will need a new order.
== END 2022-05-27 10:28 | disposition home or self-care (01) ==
LOC: ANHGOSHPT 15:30
PROVIDERS: PCP Nurse Practitioner; Visit Provider Nurse Practitioner
DX: M54.9 Dorsalgia, unspecified (principal)
CPT/HCPCS: 97014; 97110; 97112; 97140; 97161; 97530; G0283

== ENCOUNTER 2022-05-11 12:20 | Emergency (ER) | payer MEDICAID, SELFPAY ==
[2022-05-11 12:24] VITALS: BP 129/72; PULSE 99; RESP 14; TEMP 36.8; O2SAT 100
--- NOTE | 2022-05-11 13:27 | ED.EXTPRO ---
HPI - Extremity Problem General Chief complaint: Extremity Problem,Nontraumatic Stated complaint: lower extremity numbness Time Seen by Provider: 05/11/22 12:23 History of Present Illness HPI Narrative: 21-year-old female presenting to the emergency department from the neurology office for evaluation of worsening intermittent numbness of the perineum and 2 new episodes of urinary incontinence. Patient had a sledding accident approximately 2 years ago. Patient reports that over the course of the last year she has had increased lower back pain and intermittent lower extremity numbness. Patient does have a CT scan showing lumbar spondylosis and lumbar stenosis. Patient has had follow-up with neurosurgery and is scheduled for MRI tomorrow and an EMG in June. Patient was having follow-up with neurology today for migraines when she mentioned the urinary incontinence. Neurology touched base with NSGY office and patient was referred to the emergency department. Upon arrival to the emergency room patient denies any numbness of the perineum. Patient states that she has had loss of bladder control twice but denies any difficulty starting urination and denies any incontinence to stool. Patient states that she has intermittent lower extremity pain, intermittent numbness of the feet and numbness of the right lateral leg and right lateral arm. Related Data Allergies Allergy/AdvReac Type Severity Reaction Status Date / Time amoxicillin Allergy Swelling Verified 05/11/22 10:57 of Lip/Tongue/Throat codeine Allergy Swelling Verified 05/11/22 10:57 of Lip/Tongue/Throat garlic Allergy Swelling Verified 05/11/22 10:57 Penicillins Allergy Swelling Verified 05/11/22 10:57 of Lip/Tongue/Throat promethazine Allergy Muscle Verified 05/11/22 10:57 Spasms Review of Systems Review of Systems: CONSTITUTIONAL: Denies fever, chills, or sweats. EYES: Denies visual changes, redness, or discharge. ENT: Denies rhinorrhea, congestion, sore throat, or otalgia. CARDIOVASCULAR: Denies chest pain, palpitations, or edema. RESPIRATORY: Denies cough or dyspnea. GASTROINTESTINAL: Denies abdominal pain, nausea, vomiting, or diarrhea. GENITOURINARY: Denies dysuria or hematuria. SKIN: Denies rash or itching. MUSCULOSKELETAL: Denies back pain, joint pain, or myalgia. NEUROLOGIC: See HPI PSYCHIATRIC: Denies anxiety or depression. [facility] Past Medical History Medical History Abnormal EEG Allergies Anxiety Bilateral pulmonary infiltrates on chest x-ray Chronic headaches Chronic tonsillitis Disorder of metabolism GERD (gastroesophageal reflux disease) H. pylori infection Inflammatory arthritis Irritable bowel disease Migraines Paresthesia Sleep disorder Suicide attempt Tonsil stone Tylenol overdose Surgical History Surgical History H/O sinus surgery H/O wisdom tooth extraction History of sinus surgery (~2020) Hx of tonsillectomy (~07/2021) Family History Family History Mother Thyroid disease Depression Anxiety Heart disease Asthma Thyroid cancer Endometriosis Father Alcoholism Anxiety Depression Heart disease Hypertension Sibling Alcoholism Asthma Anxiety Depression Grandparent Cancer paternal grandparent Hypertension paternal grandparent Heart disease maternal grandparent Cerebrovascular accident maternal grandparent Endometriosis Other Endometriosis Social History Social History Smoking status: Never smoker Alcohol intake: former Substance use: never Substance use type: does not use Lack of Transportation: No Lack of Food: Never True Current Housing: Decline to Answer Concerned About Future Housing: No Difficulty Paying Gas/Electr
== END 2022-05-11 13:52 | disposition home or self-care (01) ==
PROVIDERS: Emergency Provider Emergency Medicine; PCP Family Medicine
DX: M54.50 Low back pain, unspecified (principal); F41.9 Anxiety disorder, unspecified; K21.9 Gastro-esophageal reflux disease without esophagitis
CPT/HCPCS: 99283

== ENCOUNTER 2022-05-12 07:25 | Outpatient (CLI) | payer MEDICAID, SELFPAY ==
--- NOTE | ~2022-05-12 | MR_ITS ---
EXAMINATION: MR lumbar spine wo con DATE: 05/12/2022 09:22 INDICATION: Low back pain TECHNIQUE: Magnetic resonance imaging (MRI) of the lumbar spine was performed without intravenous con trast. Sequences included sagittal T2-weighted FSE, sagittal T2-weighted FS FSE, sagittal T1-weighted FSE, and axial T2-weighted FSE. COMPARISON: None FINDINGS: Alignment is normal. Vertebral body heights are normal. Normal marrow signal. Normal disc height and signal. The conus medullaris terminates at T12-L1. There is normal signal in the caudal spinal cord. Paravertebral soft tissues are unremarkable. The following disc levels are specifically discussed: T12-L1: The disc does not extend beyond the endplate margin. There is mild bilateral facet joint oste oarthritis. There is no neural foraminal stenosis. There is no central canal stenosis. L1-L2: The disc does not extend beyond the endplate margin. There is mild bilateral facet joint osteo arthritis. There is no neural foraminal stenosis. There is no central canal stenosis. L2-L3: The disc does not extend beyond the endplate margin. There is mild bilateral facet joint osteo arthritis. There is no neural foraminal stenosis. There is no central canal stenosis. L3-L4: Disc is minimally bulging. There is mild bilateral facet joint osteoarthritis. There is minima l bilateral neural foraminal stenosis. There is no central canal stenosis. L4-L5: Disc is mildly bulging. There is mild bilateral facet joint osteoarthritis. There is mild bila teral neural foraminal stenosis. There is minimal central canal stenosis. L5-S1: Disc is mildly bulging. There is mild left and moderate right facet joint osteoarthritis. Ther e is no neural foraminal stenosis. There is no central canal stenosis. IMPRESSION: 1. Minimal to mild lumbar spondylosis. Reviewed, dictated and finalized at location L. TAL MARKETING APPRENTICE
--- NOTE | ~2022-05-12 | MR_ITS ---
MRI of the brain and internal auditory canals Clinical History: Right hemisensory loss Technique: Axial and sagittal T1-weighted images were acquired. These were followed by axial T2-weigh antonio, diffusion weighted, gradient, and FLAIR images. Thin cut coronal T1-weighted and T2 fat-sat imag es, and thin cut axial T1-weighted images were acquired through the internal auditory canal regions. Following intravenous administration of 10 cc MultiHance gadolinium, T1-weighted fat-sat imaging was performed through the brain in the axial and coronal planes. T1 postcontrast imaging was also perform ed in the axial and coronal planes through the internal auditory canals. Findings: No abnormal signal seen in the brain parenchyma. No acute infarct, intracranial hemorrhage, or mass lesion. Ventricles and subarachnoid spaces are unremarkable. Orbits are unremarkable. Paranasal sinuses and m astoids are clear. Major intramural flow voids are grossly intact. Sagittal midline structures are intact. No abnormal mass lesion identified at the cerebellopontine angle regions or internal auditory canals. No abnormal postcontrast enhancement identified. IMPRESSION: Unremarkable MRI of the brain and internal auditory canals. Reviewed, dictated and finalized at location M. INAL MANAGER
== END 2022-05-12 07:26 | disposition home or self-care (01) ==
PROVIDERS: PCP Nurse Practitioner; Visit Provider Nurse Practitioner Adult Health
DX: R20.0 Anesthesia of skin (principal); M47.816 Spondylosis without myelopathy or radiculopathy, lumbar region; M54.9 Dorsalgia, unspecified
CPT/HCPCS: 70553; 72148; A9577

== ENCOUNTER 2022-05-18 21:31 | Outpatient (NON) | payer MEDICAID, SELFPAY | END 2022-05-18 21:32 | disposition home or self-care (01) | LOC: ANHLAB 21:32 | PROVIDERS: PCP Family Medicine; Visit Provider Nurse Practitioner | DX: R31.9 Hematuria, unspecified (principal) | CPT/HCPCS: 87086; 87088 ==

== ENCOUNTER 2022-06-14 08:13 | Outpatient (CLI) | payer MEDICAID, SELFPAY ==
[2022-06-14 19:24] LABS: Alanine Aminotransferase 19 U/L (6-35); Albumin Level 4.4 g/dL (3.7-5.6); Alkaline Phosphatase 93 U/L (45-116); Anion Gap 8 mmol/L (8-16); Aspartate Amino Transferase 36 U/L (14-36); Bilirubin,Total 0.3 mg/dL (0.2-1.3); Blood Urea Nitrogen 13 mg/dL (8-21); Calcium 8.3 mg/dL (8.9-10.7); Carbon Dioxide 19 mmol/L (22-30); Chloride 109 mmol/L (98-107); Estimated Glomerular Filt Rate > 60; Glucose 67 mg/dL (65-110); Potassium 3.7 mmol/L (3.4-5.0); Sodium 136 mmol/L (134-143)
[2022-06-14 20:10] LABS: Basophils Absolute Auto 0.1 K/mm3 (0.0-0.1); Basophils Percent Auto 0.8 % (0.2-1.2); Eosinophils Absolute Auto 0.1 K/mm3 (0-0.3); Eosinophils Percent Auto 1.5 % (0-4.4); Hematocrit 39.2 % (37.0-47.0); Hemoglobin 12.2 g/dL (12.0-15.0); Immature Granulocyte Absolute 0.02 K/mm3 (0.00-0.031); Immature Granulocyte Percent A 0.3 % (0-0.5); Lymphocytes Absolute Auto 1.61 K/mm3 (0.9-3.2); Lymphocytes Percent Auto 20.4 % (18.3-44.2); Mean Corpuscular HGB Conc 31.1 g/dl (32-36); Mean Corpuscular Volume 89.9 fl (80-100); Mean Platelet Volume 11.9 fl (7.4-10.4); Monocytes Absolute Auto 0.6 K/mm3 (0.1-0.6); Neutrophils Absolute Auto 5.5 K/mm3 (1.3-6.7); Platelet Count Result 199 k/mm3 (150-375); Red Blood Count 4.36 M/mm3 (4.2-5.4); Red Cell Distribution Width 13.5 % (11.5-14.5); White Blood Count 7.9 K/mm3 (4.5-10.0)
== END 2022-06-14 08:14 | disposition home or self-care (01) ==
LOC: ANHGOSHLAB 08:15
PROVIDERS: PCP Family Medicine; Visit Provider Nurse Practitioner
DX: Z01.818 Encounter for other preprocedural examination (principal)
CPT/HCPCS: 36415; 80053; 85025

== ENCOUNTER → 2022-06-16 09:58 | Outpatient (CLI) | payer MEDICAID, SELFPAY ==
--- NOTE | ~2022-06-16 | XR_ITS ---
EXAMINATION: XR chest 2V 06/16/2022 10:16 INDICATION: Shortness of breath PROCEDURE: 2 view chest COMPARISON: 11/09/2020 FINDINGS: The lungs are clear. The cardiomediastinal silhouette is within normal limits. There are no pleural effusions. There is no pneumothorax suspected. IMPRESSION: 1: NO ACUTE CARDIOPULMONARY DISEASE. Reviewed, dictated and finalized at location L. ICE SUPERINTENDENT
== END ==
PROVIDERS: PCP Nurse Practitioner; Visit Provider Nurse Practitioner
DX: R06.02 Shortness of breath (principal)
CPT/HCPCS: 71046

== ENCOUNTER 2022-06-18 13:14 | Emergency (ER) | payer MEDICAID, SELFPAY ==
--- NOTE | 2022-06-18 13:22 | ED.URI ---
HPI - URI/Sore Throat General Stated Complaint: SORE THROAT/SOB Time Seen by Provider: 06/18/22 13:40 Source: patient and RN notes reviewed Mode of arrival: ambulatory Limitations: no limitations History of Present Illness HPI Narrative: 21-year-old female presents concern for sore throat that started yesterday. She reports postnasal drainage. She reports chronic sinus problems, she has had changing symptoms. She denies fever, aches, chills, sweats. MD elicited complaint: sore throat Related Data Home Medications Medication Instructions Recorded Confirmed ubrogepant 100 mg tablet (Ubrelvy) 100 mg PO ONCE PRN 06/13/22 06/16/22 Allergies Allergy/AdvReac Type Severity Reaction Status Date / Time amoxicillin Allergy Swelling Verified 06/18/22 13:36 of Lip/Tongue/Throat codeine Allergy Swelling Verified 06/18/22 13:36 of Lip/Tongue/Throat garlic Allergy Swelling Verified 06/18/22 13:36 Penicillins Allergy Swelling Verified 06/18/22 13:36 of Lip/Tongue/Throat promethazine Allergy Muscle Verified 06/18/22 13:36 Spasms Review of Systems Review of Systems: CONSTITUTIONAL: Denies malaise, chills, sweats, or fever. EYES: Denies visual changes, redness, or discharge. ENT: Reports rhinorrhea, congestion, sore throat. Denies sinus pain, otalgia CARDIOVASCULAR: Denies chest pain, palpitations, or edema. RESPIRATORY: Reports cough. Denies dyspnea. GASTROINTESTINAL: Denies abdominal pain, nausea, vomiting, diarrhea SKIN: Denies rash or itching. MUSCULOSKELETAL: Denies myalgia. NEUROLOGIC: Denies headache. All systems reviewed & are unremarkable except as noted in HPI and below PMFSH Past Medical History Medical History Abnormal EEG Allergies Anxiety Bilateral pulmonary infiltrates on chest x-ray Chronic headaches Chronic tonsillitis Disorder of metabolism GERD (gastroesophageal reflux disease) H. pylori infection Inflammatory arthritis Irritable bowel disease Migraines Paresthesia Sleep disorder Suicide attempt Tonsil stone Tylenol overdose Surgical History Surgical History H/O sinus surgery H/O wisdom tooth extraction History of sinus surgery (~2020) Hx of tonsillectomy (~07/2021) Family History Family History Mother Thyroid disease Depression Anxiety Heart disease Asthma Thyroid cancer Endometriosis Father Alcoholism Anxiety Depression Heart disease Hypertension Sibling Alcoholism Asthma Anxiety Depression Grandparent Cancer paternal grandparent Hypertension paternal grandparent Heart disease maternal grandparent Cerebrovascular accident maternal grandparent Endometriosis Other Endometriosis Social History Social History Smoking status: Never smoker Alcohol intake: former Substance use: never Substance use type: does not use Lack of Transportation: No Lack of Food: Never True Current Housing: Decline to Answer Concerned About Future Housing: No Difficulty Paying Gas/Electric Bills: No Difficulty Paying for Meds: No Currently Unemployed: No Education: High School Diploma/GED Difficulty w/ Childcare or Family Care: No Living arrangements: with family Occupation/Education: student Gender identity (if verbalized by the patient): Female Spiritual care concerns: No Agree to blood products: Yes Comments At time of signature, agree with nursing past medical, surgical, social and family history. There is no relevant family history pertinent to the presenting complaint Exam Narrative: GENERAL: Well-appearing, well-nourished, and in no acute distress. HEAD: Normocephalic EYES: PERRLA, conjunctivae clear ENT: Nares clear, turbinates edematous and e
[2022-06-18 13:34] VITALS: BP 106/66; PULSE 90; RESP 20; TEMP 37; O2SAT 100
== END 2022-06-18 13:55 | disposition home or self-care (01) ==
PROVIDERS: Emergency Provider Nurse Practitioner; PCP Nurse Practitioner
DX: J02.9 Acute pharyngitis, unspecified (principal); K21.9 Gastro-esophageal reflux disease without esophagitis; M13.80 Other specified arthritis, unspecified site
CPT/HCPCS: 87081; 87880; 99213; G0463

== ENCOUNTER 2022-06-20 08:07 | Outpatient (CLI) | payer MEDICAID, SELFPAY ==
--- NOTE | 2022-06-20 11:00 | NEURO_ITS ---
Impression: # Complains of paresthesia of skin. # Normal motor and sensory nerve conduction study of all 4 extremities. # Normal needle/EMG exam. # Clinical correlation recommended. Motor Nerve Conduction Upper Extremities Median Nerve Conduction Velocity (m/sec) Terminal Latency (msec) Response Voltage(mV) Elbow-Wrist Wrist Elbow Wrist Right 60 3.1 9 5 Left 59 2.9 9 10 Ulnar Nerve Conduction Velocity (m/sec) Terminal Latency (msec) Response Voltage(mV) Above Elbow Below Elbow Wrist Above Elbow Below Elbow Wrist Right 58 2.0 6 7 Left 60 2.2 6 6 F-Wave Latency Median (ms) Ulnar (ms) Right 25.0 24.3 Left 25.0 24.2 Sensory Nerve Conduction Upper Extremities Median Nerve Stimulation Terminal Latency (msec) Wrist/Digit Response Voltage (uV) Wrist Right 2.7/2.6 68/65 Left 2.6/2.7 94/71 Ulnar Nerve Stimulation Terminal Latency (msec) Wrist/Digit Response Voltage (uV) Wrist Right 2.2 68 Left 2.5 66 Radial Nerve Terminal Latency (msec) Response Voltage(mV) Right 2.0 48 Left 2.3 25 Left Right Muscles Examined Fibrillation Fasciculation Scarcity Voltage Duration Left Right Left Right Left Right Left Right Left Right Deltoid Biceps X X Brachioradialis Triceps X X Pronator Teres X X Ext Indicis X X Ext Digitorum X X Abd Poll Brev X X 1st Dorsal Interosseus Paraspinals Motor Nerve Conduction Lower Extremities Peroneal Nerve Conduction Velocity (m/sec) Terminal Latency (msec) Response Voltage(mV) Popliteal space-Ankle Ankle Extensor Dig Brevis Popliteal space Ankle Right 52 4.0 2 2 Left 52 3.9 2 2 Tibial Nerve Conduction Velocity (m/sec) Terminal Latency (msec) Response Voltage(mV) Popliteal space-Ankle Ankle-Extensor Dig Brevis Popliteal space Ankle Right 49 4.0 5 5 Left 52 3.8 5 6 F-waves Peroneal Nerve (ms) Tibial Nerve (ms) Right 45.7 44.8 Left 45.7 44.4 Sensory Nerve Conduction Lower Extremities Sural Nerve Stimulation Terminal Latency (msec) Ankle Response Voltage (uV) Ankle Response Velocity (m/sec) 55 Right 3.1 41 52 Left 2.9 27 Superficial Peroneal Nerve Stimulation Terminal Latency (msec) Ankle Response Voltage (uV) Ankle Response Velocity (m/sec) Right 3.4 21 67 Left 3.3 10 48 Left Right Muscles Examined Fibrillation Fasciculation Scarcity Voltage Duration Left Right Left Right Left Right Left Right Left Right X X Ant Tibialis X X Gastroc X X Fibularis Long X X Flex Dig Long X X Ext Dig Brev Abd Hallucis Quadriceps Paraspinals MTDD
== END 2022-06-20 08:08 | disposition home or self-care (01) ==
LOC: ANHNEURO 08:08
PROVIDERS: PCP Nurse Practitioner; Visit Provider Nurse Practitioner Adult Health
DX: R20.2 Paresthesia of skin (principal)
CPT/HCPCS: 95886; 95913

== ENCOUNTER 2022-07-14 08:31 | Outpatient (CLI) | payer MEDICAID, SELFPAY ==
--- NOTE | ~2022-07-14 | US_ITS ---
EXAMINATION: US pelvic complete w TV DATE: 07/14/2022 12:41 INDICATION: Salpingitis, oophoritis TECHNIQUE: Multiple transabdominal and endovaginal sonographic images of the pelvis were obtained. COMPARISON: 01/19/2022 FINDINGS: The uterus measures 7.8 x 3.5 x 4.1 cm. The endometrial complex measures 9 mm. The right ov karen measures 2.3 x 1.3 x 1.5 cm. The left ovary measures 2.0 x 1.5 x 1.5 cm. There is normal vascular flow in the ovaries. There is no free fluid in the pelvis. IMPRESSION: 1. Unremarkable pelvic ultrasound. Reviewed, dictated and finalized at location F.
== END 2022-07-14 08:32 | disposition home or self-care (01) ==
PROVIDERS: PCP Nurse Practitioner; Visit Provider Obstetrics & Gynecology
DX: N70.93 Salpingitis and oophoritis, unspecified (principal)
CPT/HCPCS: 76830; 76856

== ENCOUNTER 2022-10-04 10:46 | Outpatient (CLI) | payer MEDICAID, SELFPAY ==
[2022-10-04 12:00] LABS: Creatine Kinase 174 U/L (30-135)
[2022-10-04 12:19] LABS: Erythrocyte Sedimentation Rate 16 mm/hr (0-20)
[2022-10-07 13:33] LABS: Aldolase 3.6 U/L (<=8.1)
== END 2022-10-04 10:47 | disposition home or self-care (01) ==
LOC: ANHLAB 10:48
PROVIDERS: Nurse Practitioner; PCP Nurse Practitioner Family; Visit Provider Internal Medicine
DX: M25.50 Pain in unspecified joint (principal); R53.83 Other fatigue; M79.604 Pain in right leg; M79.605 Pain in left leg
CPT/HCPCS: 36415; 82085; 82550; 85652

== ENCOUNTER 2022-11-09 14:07 | Outpatient (CLI) | payer MEDICAID, SELFPAY ==
[2022-11-09 15:49] LABS: Basophils Absolute Auto 0.1 K/mm3 (0.0-0.1); Basophils Percent Auto 0.8 % (0.2-1.2); Eosinophils Absolute Auto 0.2 K/mm3 (0-0.3); Eosinophils Percent Auto 2.6 % (0-4.4); Hematocrit 41.1 % (37.0-47.0); Immature Granulocyte Absolute 0.01 K/mm3 (0.00-0.031); Immature Granulocyte Percent A 0.2 % (0-0.5); Lymphocytes Absolute Auto 1.91 K/mm3 (0.9-3.2); Lymphocytes Percent Auto 29.2 % (18.3-44.2); Mean Corpuscular HGB Conc 31.6 g/dl (32-36); Mean Corpuscular Volume 91.7 fl (80-100); Mean Platelet Volume 11.7 fl (7.4-10.4); Monocytes Absolute Auto 0.5 K/mm3 (0.1-0.6); Monocytes Percent Auto 7.6 % (2.6-8.5); Neutrophils Absolute Auto 3.9 K/mm3 (1.3-6.7); Neutrophils Percent Auto 59.6 % (45.5-73.1); Platelet Count Result 217 k/mm3 (150-375); Red Blood Count 4.48 M/mm3 (4.2-5.4); Red Cell Distribution Width 12.5 % (11.5-14.5); White Blood Count 6.6 K/mm3 (4.5-10.0)
[2022-11-09 16:07] LABS: Alanine Aminotransferase 37 U/L (6-35); Albumin Level 4.8 g/dL (3.5-5.1); Alkaline Phosphatase 88 U/L (38-126); Anion Gap 12 mmol/L (8-16); Aspartate Amino Transferase 32 U/L (14-36); Bilirubin,Total 0.3 mg/dL (0.2-1.3); Blood Urea Nitrogen 13 mg/dL (7-17); Carbon Dioxide 22 mmol/L (22-30); Chloride 106 mmol/L (98-107); Creatine Kinase 102 U/L (30-135); Estimated Glomerular Filt Rate > 60; Glucose 82 mg/dL (65-110); Potassium 3.9 mmol/L (3.4-5.0); Sodium 140 mmol/L (137-145)
[2022-11-15 04:02] LABS: Aldolase 3.9 U/L (<=8.1)
[2022-11-15 17:23] LABS: Chromatin Antibody <1.0
== END 2022-11-09 14:08 | disposition home or self-care (01) ==
PROVIDERS: PCP Nurse Practitioner Family; Visit Provider Internal Medicine
DX: R89.9 Unspecified abnormal finding in specimens from other organs, systems and tissues (principal)
CPT/HCPCS: 36415; 80053; 82085; 82550; 85025; 86235